=== PATIENT | male | born 1995 | race Caucasian/White ===

== ENCOUNTER 2017-05-28 20:58 | Emergency (ER) | payer BC ==
[~2017-05-28] VITALS: Ht 200.7 cm; Wt 101.5 kg
[2017-05-28 21:04] VITALS: BP 135/65; PULSE 58; RESP 16; TEMP 98.3; O2SAT 98
--- NOTE | 2017-05-28 21:32 | PD ---
HPI Chief Complaint: Syncope/Near-Syncope Time Seen by Provider: 21:25 Travel History International Travel<30 days: No Contact w/Intl Traveler<30days: No Traveled to known affect area: No History of Present Illness HPI This is a 22-year-old male who had a wisdom tooth procedure done earlier today, didn't drink or eat very much after the procedure and then was walking around his house when he got lightheaded and dizzy and slumped over and hit his chin on a granite countertop. Currently he feels back to normal. He denies any headache, vomiting, confusion and his biggest concern is his laceration on his chin. He says his family doesn't believe in vaccines so he doesn't think he's ever had a tetanus shot. He is very afraid of needles. [facility] Past Medical History Medical History: Denies Significant Hx Diminished Hearing: No Tetanus Vaccination: Unknown Influenza Vaccination: No ?: Not Past Surgical History Surgical History: No Previous Surgery Social History Alcohol Use: No Tobacco Use: No Substance Use: No Allergies-Medications (Allergen,Severity, Reaction): Coded Allergies: No Known Allergies (Unverified , 05/28/17) Reported Meds & Prescriptions Reported Meds & Active Scripts Active No Active Prescriptions or Reported Medications Review of Systems Except as stated in HPI: all other systems reviewed are Neg Physical Exam Narrative GENERAL:Well appearing, no acute distress SKIN: 2 cm deep laceration on the left chin HEAD: Atraumatic. Normocephalic. EYES: Pupils equal and round. No injection or drainage. ENT: Moist mucous membranes NECK: Trachea midline. No cervical spine tenderness. CARDIOVASCULAR: Regular rate and rhythm. No murmur appreciated. RESPIRATORY: Clear to auscultation. Breath sounds equal bilaterally. GASTROINTESTINAL: Abdomen soft, non-tender, nondistended. MUSCULOSKELETAL: No obvious deformities. NEUROLOGICAL: Awake and alert. No obvious cranial nerve deficits. Moving all extremities. PSYCHIATRIC: Appropriate mood and affect; insight and judgment normal. Data Data Last Documented VS Vital Signs Date Time Temp Pulse Resp B/P Pulse Ox O2 Delivery O2 Flow Rate FiO2 05/28/17 21:21 Room Air 05/28/17 21:04 98.3 58 16 135/65 98 Orders Electrocardiogram (05/28/17 ) Lidocaine 1% Inj (50 Ml) (Xylocaine 1% I (05/28/17 21:45) MDM Medical Decision Making Medical Screen Exam Complete: Yes Emergency Medical Condition: Yes Interpretation(s) Afebrile, no tachycardia, normotensive Differential Diagnosis Laceration, concussion, arrhythmia, hypoglycemia Narrative Course This is a 22-year-old male who had a wisdom tooth procedure earlier today who presents to the emergency department having become lightheaded and slumped over hitting his chin on a granite countertop. He has a laceration on his chin. Otherwise he feels well with no headache, vomiting and he has normal gross neurologic exam. I don't think he requires any imaging at this time. His EKG is reassuring with no evidence of arrhythmia. Glucose was normal. Laceration was repaired in the emergency department. Patient does not want a tetanus shot. He'll be discharged home. Procedures Procedure Narrative LACERATION LOCATION: Chin LENGTH: 2 cm NUMBER OF STITCHES/MIREYA: 2 REPAIR: The area of the laceration was irrigated with saline and sterilely draped. The laceration was infiltrated with 1% lidocaine. The wound was closed using 5-0 Prolene. This was a single layer repair. . The patient was advised to keep the wound clean and dry. Patient tolerated the procedure well. Diagnosis Primary Impression: Chin laceration Qualified Code: S01.81XA - Chin laceration, initial encounter Additional Impression: Lightheadedness Patient Instructions: General Instructions Additional Instructions: If you develop fevers, redness, swelling, or discharge from your wound return to the emergency room. Keep your wound dry for 24 hours. After that time, wash gently with warm soap and water. Do not use peroxide. Do not soak in baths or go swimming. Have your sutures removed in 5 days. Med/Other Pt SpecificInfo: No Change to Meds Scripts No Active Prescriptions or Reported Meds Disposition: DISCHARGE HOME Condition: Stable Sarah Hirsch MD May 28, 2017 21:32
[2017-05-28] MEDS ORDERED: LIDOCAINE HCL 1% 50 ML VIAL INFIL ONE (21:45)
--- NOTE | 2017-05-29 18:45 | EKG ---
Date Performed: 05/28/2017 Time Performed: 21:44:21 PTAGE: 22 years EKG: SINUS BRADYCARDIA WITH SINUS ARRHYTHMIA BORDERLINE ECG NO PREVIOUS TRACING DOCTOR: Mark Patel Interpretating Date/Time 05/29/2017 18:44:11
== END 2017-05-28 22:25 | disposition home or self-care (01) ==
LOC: PHED 20:58
DX: S01.81XA Laceration without foreign body of other part of head, initial encounter (principal); R42 Dizziness and giddiness
CPT/HCPCS: 12011; 93005